=== PATIENT | male | born 1965 | race Caucasian/White ===

== ENCOUNTER 2018-02-19 11:52 | Day surgery (SDC) | payer OTHER ==
[~2018-02-19] VITALS: Ht 170.2 cm; Wt 95.8 kg
[2018-02-19] MEDS ORDERED: WELCHOL 625MG625 MG PO (12:19)
[2018-02-19] MEDS ORDERED: TOPROL XL 50MG50 MG PO (12:20)
[2018-02-19] MEDS ORDERED: NATURAL E400 IU PO (12:20)
[2018-02-19] MEDS ORDERED: MELATONIN5 M1 SL (12:20)
[2018-02-19] MEDS ORDERED: ONE DAILY1 TA1 PO (12:21)
[2018-02-19] MEDS ORDERED: COZAAR100 MG PO (12:21)
[2018-02-19] MEDS ORDERED: NATURE'S BLEND100 M2 PO (12:21)
[2018-02-19] MEDS ORDERED: PROTONIX 40MG T40 MG PO (12:21)
[2018-02-19] MEDS ORDERED: FISH, FLAX, BORAGE PO (12:30)
[2018-02-19] MEDS ORDERED: FERRO-TIME325 MG PO (12:30)
[2018-02-19] MEDS ORDERED: DESYREL 50MG50 MG PO (12:31)
[2018-02-19] MEDS ORDERED: AMBIEN 10MG10 MG PO (12:32)
[2018-02-19] MEDS ORDERED: DAZIDOX10 MG PO (12:32)
[2018-02-19 12:33] VITALS: BP 138/88; PULSE 71; TEMP 98.5
[2018-02-19 14:20] VITALS: BP 107/68; PULSE 72; TEMP 97.8
[2018-02-19 14:35] VITALS: BP 104/68; PULSE 65
[2018-02-19 14:50] VITALS: BP 103/78; PULSE 63
== END 2018-02-19 15:00 | disposition home or self-care (01) ==
LOC: SDCO 11:52
DX: K74.60 Unspecified cirrhosis of liver (principal); I85.10 Secondary esophageal varices without bleeding; F10.11 Alcohol abuse, in remission; K70.30 Alcoholic cirrhosis of liver without ascites; K29.30 Chronic superficial gastritis without bleeding; K29.80 Duodenitis without bleeding; Z86.010 Personal history of colon polyps; D12.3 Benign neoplasm of transverse colon; K64.0 First degree hemorrhoids; K21.9 Gastro-esophageal reflux disease without esophagitis; C22.0 Liver cell carcinoma; Z86.19 Personal history of other infectious and parasitic diseases; G47.33 Obstructive sleep apnea (adult) (pediatric); G20 Parkinson's disease; I10 Essential (primary) hypertension; D69.6 Thrombocytopenia, unspecified; Z79.899 Other long term (current) drug therapy
CPT/HCPCS: OP; J2704; J7030

== ENCOUNTER → 2019-07-23 | Outpatient (CLI) | payer OTHER ==
[~2019-07-23] MED LIST: AMBIEN 10MG10 MG PO; COZAAR100 MG PO; DAZIDOX10 MG PO; DESYREL 50MG50 MG PO; FERRO-TIME325 MG PO; FISH, FLAX, BORAGE PO; MELATONIN5 M1 SL; NATURAL E400 IU PO; NATURE'S BLEND100 M2 PO; ONE DAILY1 TA1 PO; PROTONIX 40MG T40 MG PO; TOPROL XL 50MG50 MG PO; WELCHOL 625MG625 MG PO
== END ==
LOC: MHCPAIN 09:38
DX: G89.29 Other chronic pain (principal); M47.812 Spondylosis without myelopathy or radiculopathy, cervical region; R51 Headache
CPT/HCPCS: G0463

== ENCOUNTER → 2019-08-06 | Outpatient (CLI) | payer OTHER | LOC: MHCPAIN 07-24 13:29 | DX: G89.29 Other chronic pain (principal); M47.817 Spondylosis without myelopathy or radiculopathy, lumbosacral region; M53.3 Sacrococcygeal disorders, not elsewhere classified | CPT/HCPCS: G0463 ==

== ENCOUNTER → 2019-08-07 | Outpatient (CLI) | payer OTHER | LOC: MHCPAIN 12:47 | DX: M47.817 Spondylosis without myelopathy or radiculopathy, lumbosacral region (principal); M54.16 Radiculopathy, lumbar region ==

== ENCOUNTER → 2019-08-12 | Outpatient (CLI) | payer OTHER | LOC: MHCPAIN 12:59 | DX: G89.29 Other chronic pain (principal); M47.817 Spondylosis without myelopathy or radiculopathy, lumbosacral region; M53.3 Sacrococcygeal disorders, not elsewhere classified | CPT/HCPCS: G0463 ==

== ENCOUNTER → 2019-08-28 | Outpatient (CLI) | payer OTHER | LOC: MHCPAIN 13:03 | DX: M47.817 Spondylosis without myelopathy or radiculopathy, lumbosacral region (principal); M54.16 Radiculopathy, lumbar region ==

== ENCOUNTER → 2019-09-09 | Outpatient (CLI) | payer OTHER | LOC: MHCPAIN 12:21 | DX: G89.29 Other chronic pain (principal); M47.817 Spondylosis without myelopathy or radiculopathy, lumbosacral region; M53.3 Sacrococcygeal disorders, not elsewhere classified | CPT/HCPCS: G0463 ==

== ENCOUNTER → 2019-09-11 | Outpatient (CLI) | payer OTHER | LOC: MHCPAIN 14:06 | DX: M47.817 Spondylosis without myelopathy or radiculopathy, lumbosacral region (principal); M54.16 Radiculopathy, lumbar region | CPT/HCPCS: J1100; J2250; J3010 ==

== ENCOUNTER → 2019-09-25 | Outpatient (CLI) | payer OTHER | LOC: MHCPAIN 09:39 | DX: M54.5 Low back pain (principal) | CPT/HCPCS: J1100; J2250; J3010 ==

== ENCOUNTER → 2019-11-25 | Outpatient (CLI) | payer OTHER | LOC: MHCPAIN 12:38 | DX: M47.817 Spondylosis without myelopathy or radiculopathy, lumbosacral region (principal); M53.3 Sacrococcygeal disorders, not elsewhere classified | CPT/HCPCS: G0463 ==